=== PATIENT | female | born 1950 | race Caucasian/White ===

== ENCOUNTER 2020-06-07 06:00 | Outpatient (RCR) | payer MEDICARE, OTHER, SELFPAY | END 2020-06-18 23:59 | disposition home or self-care (01) | LOC: MPO 06:00 | PROVIDERS: Family Provider Nurse Practitioner Family; Referring Provider Internal Medicine; Visit Provider Internal Medicine | DX: R53.1 Weakness (principal); R26.89 Other abnormalities of gait and mobility | CPT/HCPCS: 97110; 97112; 97140; 97162; 97166 ==

== ENCOUNTER 2020-06-19 06:00 | Outpatient (RCR) | payer MEDICARE, OTHER, SELFPAY | END 2020-07-19 23:59 | disposition home or self-care (01) | LOC: MPO 06:00 | PROVIDERS: Family Provider Nurse Practitioner Family; Referring Provider Internal Medicine; Visit Provider Internal Medicine | DX: R53.1 Weakness (principal); R27.0 Ataxia, unspecified; R26.89 Other abnormalities of gait and mobility | CPT/HCPCS: 97110; 97112; 97116; 97140 ==

== ENCOUNTER 2020-07-20 06:00 | Outpatient (RCR) | payer MEDICARE, OTHER, SELFPAY | END 2020-08-18 23:59 | disposition home or self-care (01) | LOC: MPO 06:00 | PROVIDERS: Referring Provider Internal Medicine; Visit Provider Internal Medicine | DX: R53.1 Weakness (principal); R27.0 Ataxia, unspecified | CPT/HCPCS: 97110; 97112; 97116; 97140 ==

== ENCOUNTER 2020-08-19 06:00 | Outpatient (RCR) | payer MEDICARE, OTHER, SELFPAY | END 2020-09-18 23:59 | disposition home or self-care (01) | LOC: MPO 06:00 | PROVIDERS: Referring Provider Internal Medicine; Visit Provider Internal Medicine | DX: R53.1 Weakness (principal); R27.0 Ataxia, unspecified | CPT/HCPCS: 97110; 97116; 97140 ==

== ENCOUNTER → 2020-09-21 09:14 | Outpatient (BNVA) | payer MEDICARE, OTHER, SELFPAY | PROVIDERS: Referring Provider Nurse Practitioner Family; Visit Provider Nurse Practitioner Family | DX: M25.561 Pain in right knee (principal); M17.11 Unilateral primary osteoarthritis, right knee | CPT/HCPCS: 73562 ==

== ENCOUNTER → 2021-05-23 15:28 | Outpatient (BNVA) | payer MEDICARE, OTHER, SELFPAY | PROVIDERS: Visit Provider Nurse Practitioner Family | DX: M79.641 Pain in right hand (principal); M25.511 Pain in right shoulder | CPT/HCPCS: 73030; 73130 ==

== ENCOUNTER 2021-08-01 10:36 | Outpatient (RCR) | payer MEDICARE, OTHER, SELFPAY | END 2021-08-18 23:59 | disposition home or self-care (01) | LOC: SPT 10:36 | PROVIDERS: PCP Internal Medicine; Referring Provider Internal Medicine; Visit Provider Internal Medicine | DX: H81.10 Benign paroxysmal vertigo, unspecified ear (principal); R29.6 Repeated falls | CPT/HCPCS: 95992; 97112; 97162 ==

== ENCOUNTER 2021-08-19 06:00 | Outpatient (RCR) | payer MEDICARE, OTHER, SELFPAY | END 2021-09-18 23:59 | disposition home or self-care (01) | LOC: SPT 06:00 | PROVIDERS: PCP Internal Medicine; Referring Provider Internal Medicine; Visit Provider Internal Medicine | DX: R53.1 Weakness (principal); R26.9 Unspecified abnormalities of gait and mobility; R27.0 Ataxia, unspecified | CPT/HCPCS: 95992; 97112 ==

== ENCOUNTER 2021-09-19 06:00 | Outpatient (RCR) | payer MEDICARE, OTHER, SELFPAY | END 2021-10-19 23:59 | disposition home or self-care (01) | LOC: SPT 06:00 | PROVIDERS: PCP Internal Medicine; Referring Provider Internal Medicine; Visit Provider Internal Medicine | DX: R13.10 Dysphagia, unspecified (principal) | CPT/HCPCS: 95992; 97112 ==

== ENCOUNTER 2021-09-23 10:58 | Outpatient (CLI) | payer MEDICARE, OTHER, SELFPAY ==
--- NOTE | 2021-09-23 11:03 | MR_ITS ---
WS: [id number] MRI BRAIN WITH AND WITHOUT CONTRAST HISTORY: MILD COGNITIVE IMPAIRMENT/DIZZINESS/GIDDINESS/REPEATED FALLS, history of prior brain tumor r emoval. No prior studies are available for comparison. COMPARISON: None available. TECHNIQUE: Multiplanar imaging performed through the brain with MultiHance 10 ml's IV. No acute infarct identified. Signal abnormality noted involving the posterior LEFT frontal lobe and t he adjacent parietal cortex. This is the area of prior surgery with slight gliosis. There is mild dur al thickening and a small amount of gliosis in the frontoparietal cortex. There is a very small amoun t of enhancement within the dura and extending into the superficial posterior frontal lobe cortex see n best on the sagittal imaging. There is slight nodular enhancement. There is no focal mass. No mass effect. This may all be normal postoperative changes but no prior studies are available. No additional enhancing masses. Small amount of hemosiderin at the surgical site towards the LEFT fro ntoparietal vertex. Very mild small vessel chronic ischemic changes. No prior infarct. Ventricles are normal size. Clivus and pituitary gland are normal. Visualized posterior fossa and brainstem are also normal. Paranasal sinuses: Well aerated with no significant disease. Mastoid air cells: Normal. Calvarium and scalp: Postsurgical ayo holes towards the LEFT vertex. There is a well-circumscribed s calp nodule posterior RIGHT occipital region measures 15 mm and probably a sebaceous cyst. MR/MR head wo/w con [id number] IMPRESSION: 1. No acute infarct. 2. Postsurgical changes involving the LEFT frontal parietal lobe vertex. Adjac ent hemosiderin at the surgical site with mild dural enhancement and additional enhancement over the cortex of the LEFT frontal posterior cortex. These may al l be normal postsurgical changes. No prior studies for comparison. No additiona l areas of abnormal enhancement. Recommend comparison with prior imaging studie s. If there are no prior additional imaging studies available follow-up MRI bra in in 3 months with contrast should be obtained. 3. Mild small vessel ischemic disease.
[2021-09-23] MEDS: gadobenate dimeglumine 20 mL vial IV (12:07)
== END 2021-09-23 10:59 | disposition home or self-care (01) ==
LOC: RAD 10:58
PROVIDERS: PCP Internal Medicine; Visit Provider Internal Medicine
DX: G31.84 Mild cognitive impairment of uncertain or unknown etiology (principal); R42 Dizziness and giddiness; R29.6 Repeated falls; I67.82 Cerebral ischemia
CPT/HCPCS: 70553

== ENCOUNTER 2021-10-11 06:00 | Outpatient (RCR) | payer MEDICARE, OTHER, SELFPAY | END 2021-10-19 23:59 | disposition home or self-care (01) | LOC: SST 06:00 | PROVIDERS: PCP Internal Medicine; Visit Provider Nurse Practitioner Family | DX: R13.10 Dysphagia, unspecified (principal) | CPT/HCPCS: 92507; 92523; 92524; 92610 ==

== ENCOUNTER 2021-10-20 06:00 | Outpatient (RCR) | payer MEDICARE, OTHER, SELFPAY | END 2021-11-18 23:59 | disposition home or self-care (01) | LOC: SST 06:00 | PROVIDERS: PCP Internal Medicine; Visit Provider Nurse Practitioner Family | DX: R13.10 Dysphagia, unspecified (principal) | CPT/HCPCS: 92507 ==

== ENCOUNTER 2021-10-20 06:00 | Outpatient (RCR) | payer MEDICARE, OTHER, SELFPAY | END 2021-11-03 23:59 | disposition home or self-care (01) | LOC: SPT 06:00 | PROVIDERS: PCP Internal Medicine; Visit Provider Internal Medicine | DX: H81.10 Benign paroxysmal vertigo, unspecified ear (principal); R42 Dizziness and giddiness; R29.6 Repeated falls | CPT/HCPCS: 97112 ==

== ENCOUNTER 2021-11-22 06:00 | Outpatient (RCR) | payer MEDICARE, OTHER, SELFPAY | END 2021-12-19 23:59 | disposition home or self-care (01) | LOC: SST 06:00 | PROVIDERS: PCP Internal Medicine; Visit Provider Nurse Practitioner Family | DX: R41.841 Cognitive communication deficit (principal); R13.10 Dysphagia, unspecified | CPT/HCPCS: 92523 ==

== ENCOUNTER 2021-12-21 17:30 | Emergency (ER) | payer MEDICARE, OTHER, SELFPAY ==
[2021-12-21 17:39] VITALS: BP 143/74; PULSE 68; RESP 18; TEMP 36.6; O2SAT 96; BMI 23.9
[2021-12-21 17:43] VITALS: BP 138/80; PULSE 65; O2SAT 95
[2021-12-21 18:35] VITALS: BP 138/80; PULSE 69; RESP 18; O2SAT 96
--- NOTE | 2021-12-21 18:42 | ECG_ITS ---
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 Measurements Intervals [place] Rate: 60 P: 57 CA: 184 QRS: 87 QRSD: 119 T: 59 QT: 442 QTc: 444 Interpretive Statements SINUS RHYTHM MODERATE INTRAVENTRICULAR CONDUCTION DELAY [110+ ms QRS DURATION] No previous ECG available for comparison Electronically Signed On 12-22-2021 5:27:00 CDT by Viki Burden M.D. [id number]
--- NOTE | 2021-12-21 18:42 | CTR_ITS ---
PROCEDURE INFORMATION: Exam: CT Head Without Contrast Exam date and time: 12/21/2021 7:21 PM Age: 71 years old Clinical indication: Stroke-like symptoms; Speech disturbance; Left facial droop; Additional info: Symptoms of acute stroke TECHNIQUE: Imaging protocol: Computed tomography of the head without contrast. Radiation optimization: All CT scans at this facility use at least one of these dose optimization techniques: automated exposure control; mA and/or kV adjustment per patient size (includes targeted exams where dose is matched to clinical indication); or iterative reconstruction. Other technique: STROKE PROTOCOL was implemented. COMPARISON: MR head wo/w con [id number] 09/23/2021 11:39 AM RADIATION DOSE METRICS: Total DLP (mGy-cm): 1155.08 FINDINGS: Brain: Mild atrophy and mild white matter chronic microvascular changes are noted. No hemorrhage or evidence of acute infarction. Cerebral ventricles: No ventriculomegaly. Paranasal sinuses: Visualized sinuses are unremarkable. No fluid levels. Mastoid air cells: Visualized mastoid air cells are well aerated. Bones/joints: Left parietal craniotomy is noted. No acute fracture. Soft tissues: Unremarkable. CT/CT head thrombolytic [id number] IMPRESSION: No acute intracranial abnormality. ASSESSMENT: ASPECTS ([place] Stroke Program Early CT Score) is 10.
--- NOTE | 2021-12-21 18:44 | ED_ITS ---
HPI - Neuro Symptoms/Deficit General: Chief Complaint: Neuro Symptoms/Deficit Stated Complaint: Possible stroke Time Seen by Provider: 12/21/21 17:52 Source: patient and family Mode of arrival: ambulatory Limitations: no limitations History of Present Illness: This patient is here because she was referred by her primary care doctor. She states that she is concerned she might be having some sort of a neurologic issue. She states that she awoke today and she had some left ear pain and felt like that she could not think straight. There was some question of whether she had some fluctuating dysarthria. She apparently had a resection of a brain tumor several years ago and is with left some right-s ided weakness as well as seizure disorder. Her seizures are fairly well controlled she had a seizure approximately 3 weeks ago and was hospitalized at [facility] after 3 days and had imaging and other studies which were reassuring at that time. She states when asked that she has had fluctuating changes similar to what she is experienced today but she is very concerned and so therefore is in the emergency department. Again the symptoms were present upon awakening today. She has eaten breakfast but has not eaten since breakfast. She denies any fevers or chills any change in her usual state of motor function etc. No recent falls etc. no seizures today. Associated symptoms: Reports headache(s); Deny chest pain, nausea, vertigo or vomiting Review of Systems Const: Denies: fever(s) or chills Eyes: Denies: change in vision, blurry vision or blind spots ENMT: Reports: ear or mastoid pain; Denies: throat pain, odynophagia, nasal discharge or nasal congestion Card: Denies: chest pain, palpitations or irregular heart rhythm Resp: Denies: dyspnea, productive cough or non-productive cough GI: Denies: abdominal pain, nausea, vomiting or hematemesis : Denies: flank pain, difficulty voiding, dysuria or urinary frequency Musc: Denies: neck pain, back pain, extremity pain or extremity swelling Skin/Breast: Denies: rash or pruritus Neuro: Reports: headache(s) and weakness in extremities (Chronic right-sided); Denies: dizziness, vertigo, confusion or seizure-like activity Psych: Reports: anxiety; Denies: depression or mood swings Endo: Denies: polyuria or polydipsia PFSH ED PFSH: Medical History Chronic post-traumatic stress disorder Major depressive disorder, recurrent, moderate Psychiatric care NIH stroke score NIHSS: Level Of Consciousness - 1a: 0 Level Of Consciousness Questions - 1b: Both Correct Level Of Consciousness Commands - 1c: Both Correct Best Gaze - 2: Normal Visual Gutiérrez - 3: No Visual Loss Facial Palsy - 4: Normal Motor Arm Right - 5: No Drift Motor Arm Left - 5: No Drift Motor Leg Right - 6: No Drift Motor Leg Left - 6: No Drift Limb Ataxia - 7: Absent Sensory - 8: Normal Best Language - 9: No Aphasia Dysarthia - 10: Normal Extinction And Inattention - 11: 0 Score: Total Score: 0 Physical Exam Narrative: EXAM NARRATIVE: Alert she makes good eye contact. She answers questions in a goal-directed and fluent fashion. Const: COMMON NORMALS: no acute distress, average body habitus, patient oriented x3 and alert GENERAL APPEARANCE: cooperative, comfortable and anxious HENMT: COMMON NORMALS: normocephalic, atraumatic, external ears normal and TM's normal bilaterally HEAD & SCALP: normocephalic and atraumatic; no scalp tenderness FACE & SINUS: normal facial exam and sinuses nontender EXTERNAL EAR: Yes external ears normal TYMPANIC MEMBRANE: TM's normal bilaterally Eye: COMMON NORMALS: Equal, round and reactive pupils present, EOMs intact bilaterally and conjunctivae normal CONJUNCTIVA: Yes conjunctivae normal PUPIL: Yes Equal, round and reactive pupils present Neck/C-Spine: COMMON NORMALS: full ROM, no JVD and No carotid bruits Chest: COMMONS NORMALS: normal inspection of the chest Resp: COMMON NORMALS: normal respiratory effort, No use of accessory muscles and clear to auscultation bilaterally AUSCULTATION: clear to auscultation bilaterally Cardio: COMMON NORMALS: no JVD, regular rate, regular rhythm and Peripheral pulses 2+ throughout RATE: regular rate RHYTHM: regular rhythm PERIPHERAL PULSES: Peripheral pulses 2+ throughout GI: COMMON NORMALS: Normal to inspection, nondistended, normoactive bowel sounds present, Soft to palpation and non-tender PALPATION: Yes Soft to palpation : COMMON NORMALS: Yes no CVA tenderness BLADDER/KIDNEY EXAM: Yes no CVA tenderness Back/Pelvis: COMMON NORMALS: no CVA tenderness, thoracic and lumbar spine normal to inspection and no thoracic nor lumbar tenderness Extremity: COMMON NORMALS: normal to inspection, full ROM, capillary refill normal, no calf tenderness and no pedal edema OTHER: Orthotic right ankle foot Neuro: COMMON NORMALS: patient oriented x3, moves all extremities, no focal motor deficits and no sensory deficits noted SENSORIUM/ORIENTATION: Yes alert CRANIAL NERVES: Yes CN normal except as noted SPEECH: speech normal Psych: COMMON NORMALS: mental status grossly normal Skin: COMMON NORMALS: no rashes or lesions noted, no wounds and turgor normal GENERAL SKIN EXAM: no rashes or lesions noted and turgor normal Course Reevaluation(s): Reevaluation #1: Patient remains stable without any new or focal findings. Repeat examination reveals her to be alert. Facies are symmetrical. Pupils are equal. EOMI. Tongue is midline. No temporal artery tenderness, no jaw tenderness. TMs are normal bilaterally. No skin rashes to the scalp. Neurologic examination reveals no change. She has very minimal discernible weakness in the right upper and lower extremities but no drift. She has no sensory loss to any of her extremities at. Her mentation is normal. Her voice varies in fluctuation of tone but she is goal-directed in her speech and fluent without any dysarthria. Imaging studies are reassuring and her laboratories are also reassuring. She h as a mildly low potassium but that is of no significant concern at this time. She does take oral potassium. At this juncture I have no evidence that she has a ongoing CVA, or other neurologic issue. By her admission she had a complete work-up at [facility] to include EEG and other studies which confirm her seizure disorder which is to be expected after prior craniotomy. Think some of her symptoms are probably related to N[place]um sequelae of her craniotomy and seizure disorder. She does not take any aspirin or other antiplatelet medications I recommend that she take 81 mg of aspirin for potential stroke reduction. Discussed follow-up and reasons to return to the emergency department. She was appreciative of care. Time: 21:22 Vital Signs: Vital signs: Vital Signs Temperature 98 F 12/21/21 17:39 Pulse Rate 75 12/21/21 20:55 Respiratory Rate 24 H 12/21/21 20:55 Blood Pressure 119/46 12/21/21 20:05 Pulse Oximetry 96 12/21/21 20:55 Oxygen Delivery Me thod 12/21/21 20:55 [facility] - Neuro Symptoms/Deficit Medical Decision Making Patient with a known history of prior craniotomy with concomitant and resultant mild right upper and right lower extremity weakness and recurrent headache on left side. Also has concomitant seizure disorder. She is not suffered any recent seizures. She was recently hospitalized at [facility] and had a extensive work-up. Work-up in the emergency department today was reassuring and that her CT scan did not show any acute changes and her laboratories are reassuring. Prolonged monitoring and reexamination in the emergency department failed to reveal any findings suggestive of ischemic stroke, TIA etc. Does not suggest herpes zoster, trigeminal neuralgia, TMJ syndrome, giant cell arteritis etc. NIH was 0 on admission and 0 at the time of reevaluation. Extensive discussion of her current findings and their implications and the need for all follow-up was undertaken with both patient and spouse. Medical Records I reviewed the patient's medical records. Lab Data I reviewed the patient's lab results. : 12/21/21 18:23 12/21/21 18: Radiology Impressions Head CT 12/21/21 18:42 IMPRESSION: No acute intracranial abnormality. ASSESSMENT: ASPECTS ([place] Stroke Program Early CT Score) is 10. Laboratory Results WBC 6.6 10^3/uL (4.0-10.0) 12/21/21 18: RBC 3.93 10^6/uL (4.1-5.3) L 12/21/21 18: Hgb 11.7 g/dL (11.5-15.3) 12/21/21 18: Hct 34.5 % (37.0-47.0) L 12/21/21 18: MCV 87.8 fl (81-99) 12/21/21 18: MCH 29.8 pg (28.0-34.0) 12/21/21 18: MCHC 33.9 g/dL (30.0-36.0) 12/21/21 18: RDW 12.0 % (12.1-15.1) L 12/21/21 18: Plt Count 258 10^3/cmm (130-400) 12/21/21 18: MPV 9.6 fL (7.4-10.4) 12/21/21 18: Neut % (Auto) 54.3 % 12/21/21 18: Lymph % (Auto) 33.3 % 12/21/21 18: [place] % (Auto) 9.9 % 12/21/21 18: Eos % (Auto) 1.4 % 12/21/21 18: Baso % (Auto) 0.6 % 12/21/21 18: Neut # (Auto) 3.56 10^3/uL (1.8-7.7) 12/21/21 18: Lymph # (Auto) 2.2 10^3/uL (0.8-4.8) 12/21/21 18: Canyon # (Auto) 0.7 10^3/uL (0.2-0.9) 12/21/21 18: Eos # (Auto) 0.1 10^3/uL (0.0-0.8) 12/21/21 18: Baso # (Auto) 0.0 10^3/uL (0.0-0.1) 12/21/21 18: Nucleated RBC % (auto) 0 % 12/21/21 18: Nucleated RBCs # 0.0 /100WBC 12/21/21 18: PT 14.20 SECONDS (12.1-14.9) 12/21/21 18: INR 1.07 (0.8-1.2) 12/21/21 18: APTT 32.8 SECONDS (23.9-36.7) 12/21/21 18: Sodium 140 mmol/L (136-145) 12/21/21 18: Potassium 3.3 mmol/L (3.5-5.1) L 12/21/21 18: Chloride 101 mmol/L (98-107) 12/21/21 18: Carbon Dioxide 28 mmol/L (22-29) 12/21/21 18: Anion Gap 14.3 (5-19) 12/21/21 18: BUN 22 mg/dL (8-23) 12/21/21 18: Creatinine 0.8 mg/dL (0.5-0.9) 12/21/21 18: GFR Calculation 71.1 mL/min (90-130) L 12/21/21 18: Glucose 82 mg/dL (65-115) 12/21/21 18:23 Calculated Osmolality 292 mOsm/kg (285-295) 12/21/21 18:23 Calcium 9.2 mg/dL (8.5-10.5) 12/21/21 18: Total Bilirubin 0.3 mg/dL (0.15-1.2) 12/21/21 18:23 AST 25 U/L (0-32) 12/21/21 18: ALT 20 U/L (0-33) 12/21/21 18: Alkaline Phosphatase 116 U/L (35-105) H 12/21/21 18:23 Total Protein 7.0 g/dL (6.6-8.7) 12/21/21 18: Albumin 4.8 g/dL (3.5-5.2) 12/21/21 18: Globulin 2.2 g/dL (1.3-4.6) 12/21/21 18:23 EKG Data EKG 1: I personally reviewed and interpreted this EKG as follows: Interpretation: EKG reveals a resting ventricular rate of 60 bpm. Normal intervals, normal axis. No acute ST-T wave changes noted. Discharge Plan Discharge Patient Disposition: Home Clinical Impression: Headache, Seizure disorder, Anxiety Condition: Stable Prescriptions: No Action levothyroxine [Synthroid] 50 mcg tablet 50 mcg PO DAILY hydrochlorothiazide 25 mg tablet 25 mg PO DAILY diltiazem HCl 240 mg capsule,ext.rel 24h degradable 240 mg PO DAILY simvastatin 40 mg tablet 40 mg PO BEDTIME famotidine 20 mg tablet 20 mg PO BID metoprolol tartrate 25 mg tablet 25 mg PO BID potassium chloride [Klor-Con M20] 20 mEq tablet,ER particles/crystals 20 meq PO DAILY methylphenidate HCl 20 mg tablet 20 mg PO BID gabapentin 300 mg capsule 600 mg PO TID lamotrigine 200 mg tablet 200 mg PO BID fluoxetine [Prozac] 20 mg capsule 60 mg PO QAM Qty: 90 0RF hydrocodone-acetaminophen 10-325 mg tablet 2 tab PO BID PRN (Reason: Pain) tramadol 50 mg tablet 50 mg PO Q6H PRN (Reason: Pain) alprazolam 0.25 mg tablet 0.25 mg PO BID PRN (Reason: Anxiety) timolol maleate 0.5 % drops 1 drp ophthalmic (eye) QAM Zinc Natural 100 mg Tablet 100 mg PO DAILY Vitamin D3 25 mcg (1,000 unit) Capsule 25 mcg PO DAILY biotin 5 mg Tablet 5 mg PO DAILY Discharge Orders: Discharge ED (Routine); Ordered 12/21/21 Ordered By: Tima Mcnally Referrals: Bertram Cooper MD [Primary Care Provider] - Discharge Diet: Usual diet Discharge Activity: Resume usual activity Patient Instructions: Opioid Safety, Pain Management Activity Restrictions/Additional Instructions: We discussed we did not find any shoes that suggested acute stroke, transient ischemic attack or other concerning finding while you are in the emergency department this evening. We do recommend that you begin enteric-coated aspirin 81 mg daily. We also recommend that you follow-up with neurology and your other usual care physicians in the next 10 to 14 days. If you have any new or worsening symptoms you are welcome to return to this or the nearest emergency department for reevaluation. Coding Level of Care Code ED Sed Special Education Teacher for Mahesh Wagoner Exam Comprehensive
[2021-12-21 18:49] LABS: Basophils % 0.6 %; Eosinophils # 0.1 10^3/uL (0.0-0.8); Eosinophils % 1.4 %; Hematocrit 34.5 % (37.0-47.0); Hemoglobin 11.7 g/dL (11.5-15.3); Lymphocytes # 2.2 10^3/uL (0.8-4.8); Lymphocytes % 33.3 %; Mean Corpuscular HGB Conc 33.9 g/dL (30.0-36.0); Mean Corpuscular Hemoglobin 29.8 pg (28.0-34.0); Mean Corpuscular Volume 87.8 fl (81-99); Mean Platelet Volume 9.6 fL (7.4-10.4); Monocytes # 0.7 10^3/uL (0.2-0.9); Monocytes % 9.9 %; Neutrophils # 3.56 10^3/uL (1.8-7.7); Neutrophils % 54.3 %; Nucleated Red Blood Cells % 0 %; Platelet Count 258 10^3/cmm (130-400); Red Blood Count 3.93 10^6/uL (4.1-5.3); White Blood Count 6.6 10^3/uL (4.0-10.0)
[2021-12-21 19:02] LABS: Alanine Aminotransferase 20 U/L (0-33); Albumin Level 4.8 g/dL (3.5-5.2); Alkaline Phosphatase 116 U/L (35-105); Anion Gap 14.3 (5-19); Aspartate Amino Transferase 25 U/L (0-32); Blood Urea Nitrogen 22 mg/dL (8-23); Calcium 9.2 mg/dL (8.5-10.5); Carbon Dioxide 28 mmol/L (22-29); Chloride 101 mmol/L (98-107); Globulin 2.2 g/dL (1.3-4.6); Glomerular Filtration Rate 71.1 mL/min (90-130); Glucose 82 mg/dL (65-115); Osmolality Calculated 292 mOsm/kg (285-295); Potassium 3.3 mmol/L (3.5-5.1); Sodium 140 mmol/L (136-145); Total Bilirubin 0.3 mg/dL (0.15-1.2)
[2021-12-21 19:04] VITALS: BP 158/84; PULSE 67; RESP 21; O2SAT 97
[2021-12-21 19:05] LABS: INR 1.07 (0.8-1.2)
[2021-12-21 19:06] LABS: Partial Thromboplastin Time 32.8 SECONDS (23.9-36.7)
[2021-12-21 20:05] VITALS: BP 119/46; PULSE 62; RESP 18; O2SAT 97
[2021-12-21 20:55] VITALS: PULSE 75; RESP 24; O2SAT 96
[2021-12-21 21:20] LABS: Add Urine Microscopic? NO; Charge for UA Resulting for Rev
[2021-12-21 21:25] LABS: Bilirubin Urine Neg (Negative); Blood Urine Neg (Negative); Glucose Urine UA Norm (Normal); Ketones Urine Negative (Negative); Leukocyte Esterase Urine Negative (Negative); Nitrate Urine Negative (Negative); Protein Urine Neg (Negative); Sulfosalicylic Acid Urine Negative (Negative); Urine Appearance Clear (CLEAR); Urine Color Colorless (Yellow); pH Urine 7 (5-7)
[2021-12-21 22:21] LABS: Urobilinogen Urine Norm (Negative)
== END 2021-12-21 21:34 | disposition home or self-care (01) ==
PROVIDERS: Emergency Provider Emergency Medicine; PCP Internal Medicine
DX: R51.9 Headache, unspecified (principal); G40.909 Epilepsy, unspecified, not intractable, without status epilepticus; F41.9 Anxiety disorder, unspecified
CPT/HCPCS: 36415; 70450; 80053; 81003; 85025; 85610; 85730; 93005; 99285

== ENCOUNTER 2022-02-24 12:37 | Outpatient (CLI) | payer MEDICARE, OTHER, SELFPAY ==
--- NOTE | 2022-02-24 12:52 | MR_ITS ---
WS: [id number] MRI HEAD WITH CONTRAST TECHNIQUE: Sagittal T1, T2 axial, T2 axial FLAIR, axial susceptibility weighted imaging, axial diffus ion weighted images, and coronal T2 images were obtained. Pre and post-T1 axial and post T1 coronal i mages. ADC and FSPGR images. CLINICAL INFORMATION: MILD COGNITIVE IMPAIRMENT OF UNCERTAIN OR UNKNOWN ETIOLOGY COMPARISON: MRI September 23, [address] December 21, 2021 FINDINGS: No evidence of restricted diffusion to suggest acute ischemia. Ventricular system and basal cisterns are patent. Mild small vessel changes. Mild parenchymal volume loss. Normal posterior fossa. Normal vascular flow voids at the skull base. No extra-axial fluid collection s. No evidence of mass or mass effect. Normal posterior nasopharynx. Normal parapharyngeal fat. Paran raymon sinuses are well aerated. Mastoid air cells are well aerated. Prior postoperative changes LEFT frontal parietal craniotomy. Small amount of underlying encephalomal acia and gliosis. No evidence of recurrent meningioma. Normal postoperative dural enhancement. No pat hologic enhancement. No evidence of increasing edema or mass effect. Normal optic chiasm and pituitary infundibulum. Normal cavernous sinuses and Meckel's cave. 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 No other suspicious findings. MR/MR head wo/w con [id number] IMPRESSION: 1. No evidence of recurrent or residual meningioma. 2. Prior postoperative changes LEFT frontal parietal craniotomy. Small amount of underlying encephalomalacia and gliosis with normal postoperative enhancemen t. No pathologic enhancement. 3. No evidence of increasing edema or mass effect. 4. No other suspicious findings.
[2022-02-24] MEDS: gadobenate dimeglumine 20 mL vial 13 ML IV (13:35)
== END 2022-02-24 12:38 | disposition home or self-care (01) ==
PROVIDERS: PCP Internal Medicine; Visit Provider Internal Medicine
DX: G31.84 Mild cognitive impairment of uncertain or unknown etiology (principal)
CPT/HCPCS: 70553; A9577

== ENCOUNTER → 2022-02-25 10:42 | Outpatient (BNVA) | payer MEDICARE, OTHER, SELFPAY | PROVIDERS: PCP Family Medicine; Visit Provider Nurse Practitioner Family | DX: R39.9 Unspecified symptoms and signs involving the genitourinary system (principal); N12 Tubulo-interstitial nephritis, not specified as acute or chronic; J01.00 Acute maxillary sinusitis, unspecified | CPT/HCPCS: 81000; 87086 ==

== ENCOUNTER → 2022-11-14 10:08 | Outpatient (BNVA) | payer MEDICARE, OTHER, SELFPAY | PROVIDERS: PCP Family Medicine; Visit Provider Nurse Practitioner Family | DX: M19.012 Primary osteoarthritis, left shoulder (principal); M25.60 Stiffness of unspecified joint, not elsewhere classified; M25.512 Pain in left shoulder | CPT/HCPCS: 73030 ==

== ENCOUNTER → 2022-11-22 10:16 | Outpatient (BNVA) | payer MEDICARE, OTHER, SELFPAY | PROVIDERS: PCP Family Medicine; Visit Provider Nurse Practitioner Family | DX: M11.232 Other chondrocalcinosis, left wrist (principal); M19.032 Primary osteoarthritis, left wrist; M25.532 Pain in left wrist; R07.81 Pleurodynia | CPT/HCPCS: 71101; 73110 ==

== ENCOUNTER → 2023-01-14 13:46 | Outpatient (BNVA) | payer MEDICARE, OTHER, SELFPAY | PROVIDERS: PCP Family Medicine; Visit Provider Nurse Practitioner Family | DX: R68.89 Other general symptoms and signs (principal); J40 Bronchitis, not specified as acute or chronic | CPT/HCPCS: 87400; 87426 ==

== ENCOUNTER 2023-03-06 15:13 | Outpatient (CLI) | payer MEDICARE, OTHER, SELFPAY ==
[2023-03-06 16:48] LABS: Basophils # 0.1 10^3/uL (0.0-0.1); Basophils % 0.9 %; Eosinophils # 0.1 10^3/uL (0.0-0.8); Eosinophils % 2.4 %; Hematocrit 36.6 % (36-47); Lymphocytes # 0.7 10^3/uL (0.8-4.8); Lymphocytes % 12.3 %; Mean Corpuscular HGB Conc 35.5 g/dL (30-55); Mean Corpuscular Hemoglobin 31.2 pg (27-33); Mean Corpuscular Volume 87.8 fl (85-98); Monocytes # 0.5 10^3/uL (0.2-0.9); Monocytes % 9.3 %; Neutrophils # 4.34 10^3/uL (1.8-7.7); Neutrophils % 74.9 %; Nucleated Red Blood Cells % 0 %; Platelet Count 225 10^3/cmm (157-399); Red Blood Count 4.17 10^6/uL (3.85-5.65); Red Cell Distribution Width 12.1 % (12.1-15.1); White Blood Count 5.79 10^3/uL (3.29-11.43)
[2023-03-06 16:58] LABS: Alanine Aminotransferase 19 U/L (0-33); Albumin Level 4.6 g/dL (3.5-5.2); Alkaline Phosphatase 99 U/L (35-105); Anion Gap 17.8 (5-19); Aspartate Amino Transferase 30 U/L (0-32); Blood Urea Nitrogen 20 mg/dL (8-23); Calcium 9.2 mg/dL (8.5-10.5); Carbon Dioxide 25 mmol/L (22-29); Chloride 100 mmol/L (98-107); Globulin 2.1 g/dL (1.3-4.6); Glomerular Filtration Rate 61.9 mL/min (90-130); Glucose 93 mg/dL (65-115); Osmolality Calculated 290 mOsm/kg (285-295); Potassium 3.8 mmol/L (3.5-5.1); Sodium 139 mmol/L (136-145); Total Bilirubin 0.4 mg/dL (0.15-1.2); Total Protein 6.7 g/dL (6.6-8.7)
== END 2023-03-06 15:14 | disposition home or self-care (01) ==
PROVIDERS: PCP Family Medicine; Visit Provider Internal Medicine Pulmonary Disease
DX: A49.9 Bacterial infection, unspecified (principal)
CPT/HCPCS: 80053; 85025

== ENCOUNTER 2023-03-09 12:01 | Outpatient (CLI) | payer MEDICARE, OTHER, SELFPAY ==
[2023-03-09 12:54] LABS: Vancomycin Trough 12.5 ug/mL (10-15)
== END 2023-03-09 12:02 | disposition home or self-care (01) ==
LOC: LAB 12:02
PROVIDERS: PCP Family Medicine; Visit Provider Podiatrist Foot & Ankle Surgery
DX: M86.171 Other acute osteomyelitis, right ankle and foot (principal)
CPT/HCPCS: 80202

== ENCOUNTER 2023-03-13 11:14 | Outpatient (CLI) | payer MEDICARE, OTHER, SELFPAY ==
[2023-03-13 11:52] LABS: Basophils # 0.1 10^3/uL (0.0-0.1); Eosinophils # 0.2 10^3/uL (0.0-0.8); Eosinophils % 3.6 %; Hematocrit 36.3 % (36-47); Lymphocytes # 1.7 10^3/uL (0.8-4.8); Mean Corpuscular HGB Conc 34.2 g/dL (30-55); Mean Corpuscular Hemoglobin 30.8 pg (27-33); Mean Corpuscular Volume 90.3 fl (85-98); Mean Platelet Volume 9.5 fL (7.4-10.4); Monocytes # 0.7 10^3/uL (0.2-0.9); Monocytes % 10.4 %; Neutrophils # 4.03 10^3/uL (1.8-7.7); Neutrophils % 59.7 %; Nucleated Red Blood Cells % 0 %; Platelet Count 256 10^3/cmm (157-399); Red Blood Count 4.02 10^6/uL (3.85-5.65); Red Cell Distribution Width 12.2 % (12.1-15.1); White Blood Count 6.75 10^3/uL (3.29-11.43)
[2023-03-13 12:04] LABS: Vancomycin Trough 12.4 ug/mL (10-15)
[2023-03-13 12:06] LABS: Alanine Aminotransferase 22 U/L (0-33); Albumin Level 4.3 g/dL (3.5-5.2); Alkaline Phosphatase 93 U/L (35-105); Anion Gap 11.7 (5-19); Aspartate Amino Transferase 32 U/L (0-32); Blood Urea Nitrogen 26 mg/dL (8-23); Calcium 9.5 mg/dL (8.5-10.5); Carbon Dioxide 31 mmol/L (22-29); Chloride 101 mmol/L (98-107); Globulin 2.4 g/dL (1.3-4.6); Glomerular Filtration Rate 70.9 mL/min (90-130); Glucose 105 mg/dL (65-115); Osmolality Calculated 295 mOsm/kg (285-295); Potassium 3.7 mmol/L (3.5-5.1); Sodium 140 mmol/L (136-145); Total Bilirubin 0.2 mg/dL (0.15-1.2); Total Protein 6.7 g/dL (6.6-8.7)
== END 2023-03-13 11:15 | disposition home or self-care (01) ==
PROVIDERS: PCP Family Medicine; Visit Provider Podiatrist Foot & Ankle Surgery
DX: Z01.89 Encounter for other specified special examinations (principal)
CPT/HCPCS: 80053; 80202; 85025

== ENCOUNTER 2023-03-19 10:47 | Outpatient (CLI) | payer MEDICARE, OTHER, SELFPAY ==
[2023-03-19 11:05] LABS: Basophils % 0.6 %; Eosinophils # 0.2 10^3/uL (0.0-0.8); Hematocrit 35.4 % (36-47); Lymphocytes # 1.3 10^3/uL (0.8-4.8); Lymphocytes % 18.9 %; Mean Corpuscular HGB Conc 34.2 g/dL (30-55); Mean Corpuscular Hemoglobin 31.2 pg (27-33); Mean Corpuscular Volume 91.2 fl (85-98); Mean Platelet Volume 9.6 fL (7.4-10.4); Monocytes # 0.6 10^3/uL (0.2-0.9); Monocytes % 8.1 %; Neutrophils # 4.76 10^3/uL (1.8-7.7); Neutrophils % 69.1 %; Nucleated Red Blood Cells % 0 %; Platelet Count 232 10^3/cmm (157-399); Red Blood Count 3.88 10^6/uL (3.85-5.65); Red Cell Distribution Width 12.2 % (12.1-15.1); White Blood Count 6.89 10^3/uL (3.29-11.43)
[2023-03-19 11:29] LABS: Alanine Aminotransferase 20 U/L (0-33); Albumin Level 4.1 g/dL (3.5-5.2); Alkaline Phosphatase 93 U/L (35-105); Anion Gap 15.4 (5-19); Aspartate Amino Transferase 27 U/L (0-32); Blood Urea Nitrogen 26 mg/dL (8-23); Calcium 9.5 mg/dL (8.5-10.5); Carbon Dioxide 28 mmol/L (22-29); Chloride 100 mmol/L (98-107); Globulin 2.4 g/dL (1.3-4.6); Glomerular Filtration Rate 70.9 mL/min (90-130); Glucose 139 mg/dL (65-115); Osmolality Calculated 297 mOsm/kg (285-295); Potassium 3.4 mmol/L (3.5-5.1); Sodium 140 mmol/L (136-145); Total Bilirubin 0.3 mg/dL (0.15-1.2); Total Protein 6.5 g/dL (6.6-8.7)
[2023-03-19 11:30] LABS: Vancomycin Trough 14.3 ug/mL (10-15)
== END 2023-03-19 10:48 | disposition home or self-care (01) ==
PROVIDERS: PCP Family Medicine; Visit Provider Podiatrist Foot & Ankle Surgery
DX: M86.171 Other acute osteomyelitis, right ankle and foot (principal)
CPT/HCPCS: 80053; 80202; 85025

== ENCOUNTER 2023-03-26 15:47 | Outpatient (CLI) | payer MEDICARE, OTHER, SELFPAY ==
[2023-03-26 16:56] LABS: Basophils % 0.4 %; Eosinophils # 0.2 10^3/uL (0.0-0.8); Eosinophils % 3.6 %; Hematocrit 37.8 % (36-47); Lymphocytes # 1.5 10^3/uL (0.8-4.8); Lymphocytes % 31.8 %; Mean Corpuscular Hemoglobin 31.6 pg (27-33); Mean Corpuscular Volume 87.7 fl (85-98); Mean Platelet Volume 10.1 fL (7.4-10.4); Monocytes # 0.5 10^3/uL (0.2-0.9); Monocytes % 10.4 %; Neutrophils # 2.53 10^3/uL (1.8-7.7); Neutrophils % 53.6 %; Nucleated Red Blood Cells % 0 %; Platelet Count 307 10^3/cmm (157-399); Red Blood Count 4.31 10^6/uL (3.85-5.65); Red Cell Distribution Width 11.9 % (12.1-15.1); White Blood Count 4.72 10^3/uL (3.29-11.43)
[2023-03-26 17:37] LABS: Alanine Aminotransferase 25 U/L (0-33); Albumin Level 4.6 g/dL (3.5-5.2); Alkaline Phosphatase 113 U/L (35-105); Blood Urea Nitrogen 21 mg/dL (8-23); Calcium 9.6 mg/dL (8.5-10.5); Carbon Dioxide 26 mmol/L (22-29); Chloride 98 mmol/L (98-107); Globulin 2.4 g/dL (1.3-4.6); Glomerular Filtration Rate 70.9 mL/min (90-130); Glucose 91 mg/dL (65-115); Osmolality Calculated 289 mOsm/kg (285-295); Sodium 138 mmol/L (136-145); Total Bilirubin 0.5 mg/dL (0.15-1.2); Vancomycin Trough 15.8 ug/mL (10-15)
[2023-03-26 17:40] LABS: Anion Gap 18.6 (5-19); Aspartate Amino Transferase 39 U/L (0-32); Potassium 4.6 mmol/L (3.5-5.1)
== END 2023-03-26 15:48 | disposition home or self-care (01) ==
LOC: LAB 15:49
PROVIDERS: PCP Family Medicine; Visit Provider Podiatrist Foot & Ankle Surgery
DX: Z01.89 Encounter for other specified special examinations (principal)
CPT/HCPCS: 80053; 80202; 85025

== ENCOUNTER 2023-04-02 10:13 | Outpatient (CLI) | payer MEDICARE, OTHER, SELFPAY ==
[2023-04-02 11:03] LABS: Vancomycin Trough 10.4 ug/mL (10-15)
[2023-04-02 11:05] LABS: Alanine Aminotransferase 26 U/L (0-33); Albumin Level 3.9 g/dL (3.5-5.2); Alkaline Phosphatase 120 U/L (35-105); Aspartate Amino Transferase 30 U/L (0-32); Blood Urea Nitrogen 18 mg/dL (8-23); Calcium 8.4 mg/dL (8.5-10.5); Carbon Dioxide 24 mmol/L (22-29); Chloride 98 mmol/L (98-107); Globulin 2.5 g/dL (1.3-4.6); Glomerular Filtration Rate 70.9 mL/min (90-130); Glucose 155 mg/dL (65-115); Osmolality Calculated 283 mOsm/kg (285-295); Sodium 134 mmol/L (136-145); Total Bilirubin 0.2 mg/dL (0.15-1.2); Total Protein 6.4 g/dL (6.6-8.7)
[2023-04-02 11:06] LABS: Anion Gap 15.4 (5-19); Potassium 3.4 mmol/L (3.5-5.1)
[2023-04-03 14:23] LABS: Cyclic Citrullinated Peptide <16 UNITS
== END 2023-04-02 10:14 | disposition home or self-care (01) ==
LOC: LAB 10:14
PROVIDERS: PCP Family Medicine; Visit Provider Podiatrist Foot & Ankle Surgery
DX: M86.171 Other acute osteomyelitis, right ankle and foot (principal)
CPT/HCPCS: 80053; 80202; 86200

== ENCOUNTER → 2023-06-29 11:25 | Outpatient (BNVA) | payer MEDICARE, OTHER, SELFPAY | PROVIDERS: PCP Family Medicine; Visit Provider Nurse Practitioner | DX: M17.12 Unilateral primary osteoarthritis, left knee (principal); M25.562 Pain in left knee | CPT/HCPCS: 73562 ==

== ENCOUNTER 2024-01-25 15:09 | Emergency (ER) | payer MEDICARE, OTHER, SELFPAY ==
[2024-01-25 15:15] VITALS: BP 155/78; PULSE 69; RESP 17; TEMP 36.4; O2SAT 100; BMI 23.2
--- NOTE | 2024-01-25 15:26 | XR_ITS ---
WS: [id number] XR knee LT 3V* [id number] REASON FOR EXAM: pain FINDINGS: No previous examination for comparison. Total left knee arthroplasty. Prosthetic components are intact and in proper position and alignment. No significant focal bone abnormality. Significant soft tissue swelling anteriorly superior to and inferior to the patella. XR/XR knee LT 3V* [id number] IMPRESSION: Total left knee arthroplasty with no prosthetic or bone abnormality identified. Significant soft tissue swelling as above.
--- NOTE | 2024-01-25 15:38 | W.ED.EXTPRO ---
HPI - Extremity Problem General: Chief complaint: Extremity Problem,Nontraumatic Stated complaint: post op knee pain, seizure Time Seen by Provider: 01/25/24 15:12 Source: patient and EMS Mode of arrival: EMS Limitations: no limitations History of Present Illness: 73-year-old female who states that she had a knee replacement on her left knee in October she then had a fall had a quadricep tendon tear and had to have another surgery in November she had both the surgeries at [facility] her home health nurse noticed that her left knee was now red and swollen states it is painful does have painful range of motion. Denies any fevers denies any new injuries patient also had a seizure and route she is now awake and alert she does have a history of seizures denies hitting her head Associated symptoms: Deny chest pain, fever(s) or rash Related Data Home Medications Medication Instructions Recorded Confirmed diltiazem HCl 240 mg 240 mg PO DAILY 04/24/19 06/29/23 capsule,extended release 24 hr, controlled hydrochlorothiazide 25 mg tablet 25 mg PO DAILY 04/24/19 06/29/23 levothyroxine 50 mcg tablet 50 mcg PO DAILY 04/24/19 06/29/23 (Synthroid) metoprolol tartrate 25 mg tablet 25 mg PO BID 04/24/19 06/29/23 gabapentin 300 mg capsule 600 mg PO TID 03/27/21 06/29/23 lamotrigine 200 mg tablet 200 mg PO BID 06/08/21 06/29/23 biotin 5 mg tablet 5 mg PO DAILY 12/21/21 06/29/23 cholecalciferol (vitamin D3) 25 25 mcg PO DAILY 12/21/21 06/29/23 mcg (1,000 unit) capsule (Vitamin D3) timolol maleate 0.5 % eye drops 1 drp ophthalmic (eye) QAM 12/21/21 06/29/23 potassium citrate 15 mEq (1,620 15 meq PO BID 11/14/22 06/29/23 mg) tablet,extended release Previous Rx's Medication Instructions Recorded naproxen 500 mg tablet 500 mg PO BID #30 tabs 06/29/23 Allergies Allergy/AdvReac Type Severity Reaction Status Date / Time No Known Allergies Allergy Verified 06/29/23 10:55 Review of Systems Const: Denies: fever(s), chills, body aches or change in appetite ENMT: Denies: throat pain or dental pain Card: Denies: chest pain Resp: Denies: dyspnea GI: Denies: abdominal pain, nausea, vomiting or diarrhea Musc: Reports: extremity pain; Denies: neck pain or back pain Skin/Breast: Reports: erythema; Denies: rash Neuro: Denies: headache(s) PFSH ED PFSH: Medical History Chronic post-traumatic stress disorder Major depressive disorder, recurrent, moderate Seizures Course Vital Signs: Vital signs: Vital Signs Temperature 97.6 F 01/25/24 15:15 Pulse Rate 64 01/25/24 15:46 Respiratory Rate 17 01/25/24 15:15 Blood Pressure 147/108 01/25/24 15:46 Pulse Oximetry 97 01/25/24 15:46 Oxygen Delivery Me thod Room Air 01/25/24 15:15 MDM - Extremity (Nontraumatic) Medical Decision Making Patient presents for some erythema to her left knee erythema is very mild in nature no signs of any severe infection I fully ranged her left leg she has no pain with range of motion her inflammatory markers here are normal she is afebrile I did speak to orthopedist on-call at [facility] they want me to have her follow-up with orthopedics there on Sunday informed her of this morning if she worsen she is to call them she understands agrees to plan. She has no signs of any severe infection or cellulitis here at this time does not need antibiotics Medical Records I reviewed the patient's medical records. Lab Data I reviewed the patient's lab results. 01/25/24 16:10 01/25/24 16:10 Radiology Impressions Knee X-Ray 01/25/24 15:26 IMPRESSION: Total left knee arthroplasty with no prosthetic or bone abnormality identified. Significant soft tissue swelling as above. Laboratory Results WBC 7.87 10^3/uL (3.29-11.43) 01/25/24 16:10 RBC 4.01 10^6/uL (3.85-5.65) 01/25/24 16:10 Hgb 11.80 g/dL (11.27-16.99) 01/25/24 16:10 Hct 36.8 % (36-47) 01/25/24 16:10 MCV 91.8 fl (85-98) 01/25/24 16:10 MCH 29.4 pg (27-33) 01/25/24 16:10 MCHC 32.1 g/dL (30-55) 01/25/24 16:10 RDW 13.1 % (12.1-15.1) 01/25/24 16:10 Plt Count 317 10^3/cmm (157-399) 01/25/24 16:10 MPV 9.2 fL (7.4-10.4) 01/25/24 16:10 Neut % (Auto) 60.6 % 01/25/24 16:10 Lymph % (Auto) 24.4 % 01/25/24 16:10 Day % (Auto) 9.9 % 01/25/24 16:10 Eos % (Auto) 4.2 % 01/25/24 16:10 Baso % (Auto) 0.6 % 01/25/24 16:10 Neut # (Auto) 4.77 10^3/uL (1.8-7.7) 01/25/24 16:10 Lymph # (Auto) 1.9 10^3/uL (0.8-4.8) 01/25/24 16:10 Day # (Auto) 0.8 10^3/uL (0.2-0.9) 01/25/24 16:10 Eos # (Auto) 0.3 10^3/uL (0.0-0.8) 01/25/24 16:10 Baso # (Auto) 0.1 10^3/uL (0.0-0.1) 01/25/24 16:10 Nucleated RBC % (auto) 0 % 01/25/24 16:10 Nucleated RBCs # 0.0 /100WBC 01/25/24 16:10 ESR 20 mm/hr (0-15) H 01/25/24 16:10 Sodium 136 mmol/L (136-145) 01/25/24 16:10 Potassium 3.1 mmol/L (3.5-5.1) L 01/25/24 16:10 Chloride 98 mmol/L (98-107) 01/25/24 16:10 Carbon Dioxide 27 mmol/L (22-29) 01/25/24 16:10 Anion Gap 14.1 (5-19) 01/25/24 16:10 BUN 22 mg/dL (8-23) 01/25/24 16:10 Creatinine 0.8 mg/dL (0.5-0.9) 01/25/24 16:10 GFR Calculation Not Reportable 01/25/24 16:10 Glucose 103 mg/dL (65-115) 01/25/24 16:10 Calculated Osmolality 286 mOsm/kg (285-295) 01/25/24 16:10 Calcium 9.2 mg/dL (8.5-10.5) 01/25/24 16:10 C-Reactive Protein 26.8 mg/L (0.0-4.9) H 01/25/24 16:10 All radiology interpretation(s) finalized by discharge Discharge Plan Discharge Patient Disposition: Home Clinical Impression: Knee pain, left Condition: Stable Prescriptions: No Action levothyroxine [Synthroid] 50 mcg tablet 50 mcg PO DAILY hydrochlorothiazide 25 mg tablet 25 mg PO DAILY diltiazem HCl 240 mg capsule,ext.rel 24h degradable 240 mg PO DAILY metoprolol tartrate 25 mg tablet 25 mg PO BID gabapentin 300 mg capsule 600 mg PO TID potassium citrate 15 mEq tablet extended release 15 meq PO BID naproxen 500 mg tablet 500 mg PO BID Qty: 30 0RF Rx Instructions: Please deliver lamotrigine 200 mg tablet 200 mg PO BID timolol maleate 0.5 % drops 1 drp ophthalmic (eye) QAM Vitamin D3 25 mcg (1,000 unit) Capsule 25 mcg PO DAILY biotin 5 mg Tablet 5 mg PO DAILY Discharge Orders: Discharge ED (Routine); Ordered 01/25/24 Ordered By: Pat Carreon Referrals: Dev Pruitt MD [Primary Care Provider] - Discharge Diet: Advance as tolerated Discharge Activity: Resume usual activity Patient Instructions: Precautions after Total Joint Replacement Surgery (ED) Coding Level of Care Code ED Authorization Representative for Mahesh Wagoner
[2024-01-25 15:46] VITALS: BP 147/108; PULSE 64; O2SAT 97
[2024-01-25 16:17] LABS: Basophils # 0.1 10^3/uL (0.0-0.1); Basophils % 0.6 %; Eosinophils # 0.3 10^3/uL (0.0-0.8); Eosinophils % 4.2 %; Hematocrit 36.8 % (36-47); Lymphocytes # 1.9 10^3/uL (0.8-4.8); Lymphocytes % 24.4 %; Mean Corpuscular HGB Conc 32.1 g/dL (30-55); Mean Corpuscular Hemoglobin 29.4 pg (27-33); Mean Corpuscular Volume 91.8 fl (85-98); Mean Platelet Volume 9.2 fL (7.4-10.4); Monocytes # 0.8 10^3/uL (0.2-0.9); Monocytes % 9.9 %; Neutrophils # 4.77 10^3/uL (1.8-7.7); Neutrophils % 60.6 %; Nucleated Red Blood Cells % 0 %; Platelet Count 317 10^3/cmm (157-399); Red Blood Count 4.01 10^6/uL (3.85-5.65); Red Cell Distribution Width 13.1 % (12.1-15.1); White Blood Count 7.87 10^3/uL (3.29-11.43)
[2024-01-25 16:21] LABS: Erythrocyte Sedimentation Rate 20 mm/hr (0-15)
[2024-01-25 16:35] LABS: Anion Gap 14.1 (5-19); Blood Urea Nitrogen 22 mg/dL (8-23); C Reactive Protein 26.8 mg/L (0.0-4.9); Calcium 9.2 mg/dL (8.5-10.5); Carbon Dioxide 27 mmol/L (22-29); Chloride 98 mmol/L (98-107); Creatinine Clr Calc Pharmacy 56.2148; Glucose 103 mg/dL (65-115); Osmolality Calculated 286 mOsm/kg (285-295); Potassium 3.1 mmol/L (3.5-5.1); Sodium 136 mmol/L (136-145)
== END 2024-01-25 19:00 | disposition home or self-care (01) ==
PROVIDERS: Emergency Provider Emergency Medicine; PCP Family Medicine
DX: M25.562 Pain in left knee (principal); Z96.652 Presence of left artificial knee joint
CPT/HCPCS: 36415; 73562; 80048; 85025; 85651; 86140; 99284